=== PATIENT | male | born 1980 | race Caucasian/White ===

== ENCOUNTER 2017-07-13 06:02 | Emergency (ER) | payer SELFPAY ==
[~2017-07-13] VITALS: Wt 81.6 kg
[~2017-07-13 06:02] MED LIST: 'PARAFON FORTE500 M1 PO; BACTRIM DS 8001 TA1 PO; CIPRO500 MG PO; CLEOCIN HCL300 MG PO; HYDROCODONE BIT1 T11 PO; KEFLEX500 MG PO; MEDROL DOSEPAK4 MG PO; Motrin,Rufen800 MG PO; NAPROSYN500 MG PO; PERCOCET 325 MG1 TA2 PO; PERCOCET 325 MG1 TA7 PO; PREDNISONE50 MG PO; SKELAXIN800 M1 PO
== END 2017-07-13 06:24 | disposition left against medical advice (07) ==
LOC: ED 06:02
DX: T50.991A Poisoning by other drugs, medicaments and biological substances, accidental (unintentional), initial encounter (principal); Z79.899 Other long term (current) drug therapy; Z88.6 Allergy status to analgesic agent; Z88.8 Allergy status to other drugs, medicaments and biological substances; Y92.9 Unspecified place or not applicable

== ENCOUNTER 2018-09-22 20:02 | Inpatient (IN) | payer SELFPAY ==
[~2018-09-22] VITALS: Ht 177.8 cm; Wt 83.1 kg
--- NOTE | ~2018-09-22 | PROC NOTE ---
[place], [place] PROCEDURE NOTE [id number] #: [id number] ROOM: 420 DOCTOR: NORMA HANKINS MD BIRTHDATE: [birth year] DOS: 09/24/2018 PREOPERATIVE DIAGNOSIS: Left arm abscess. POSTOPERATIVE DIAGNOSIS: Left arm abscess. PROCEDURE: Incision and drainage of left arm abscess. SURGEON: Norma Hankins MD STREET SUPERVISOR: ZANDER. ANESTHESIA: MAC with local (1% plain lidocaine). INDICATIONS: This is a 38-year-old gentleman with a history of a left arm abscess who is here for the above-mentioned procedure. The procedure and its complications were explained to the patient in detail preoperatively. Complications that were discussed included but were not limited to bleeding, infection, hematoma/seroma/abscess formation, and damage to underlying vital structures. He agreed to proceed. DESCRIPTION OF PROCEDURE: After identifying the patient, the patient was brought to the operating suite and laid in the supine position. After a time-out procedure was called, IV sedation was administered by the anesthesia team and the parts were then painted and draped in the usual sterile fashion. There was an opening in the region of the abscess, which was opened in both directions after local anesthesia was infiltrated. The abscess cavity was entered and a specimen of pus was sent for microbiological examination. Thereafter, saline was used for irrigation and the entire abscess cavity was drained of its pus and was then packed with the help of half inch iodoform pack. A dressing was placed. The patient tolerated the procedure well and was brought back to the recovery room in stable fashion. There were no complications. Dr. Norma Hankins, the attending surgeon, was present throughout the operating case. Norma Hankins MD CM:PROCNOTE:PROCEDURE NOTE [id number] NORMA HANKINS MD
--- NOTE | ~2018-09-22 | EKG ---
[place], [place] ELECTROCARDIOGRAM REPORT NAME: KENDALL ROSE UNIT #: [id number] ROOM: 420 DOCTOR: KIRSTEN DRAFT REPORT BIRTHDATE: [birth year] [facility] Test Date: 2018-09-22 Test Time: 21:18:09 Pat Name: KENDALL ROSE Department: Room: 420 Gender: M Devops Engineer: [email or web address].WA : [id number] Requested By: CIERRA KIMBROUGH DNP Order Number: [id number] Reading MD: Anuel Fong Measurements Intervals [place] Rate: 101 P: 59 VA: 143 QRS: 82 QRSD: 91 T: 41 QT: 319 QTc: 414 Interpretive Statements Sinus tachycardia Electronically Signed On 09-23-2018 12:52:49 PDT by Anuel Fong CM:EKGRPT:ELECTROCARDIOGRAM REPORT [id number] CIERRA CURTIS DRAFT REPORT CIERRA KIMBROUGH DNP
[2018-09-22 20:04] VITALS: BP 140/71
[2018-09-22 20:39] LABS: BASO # 0.1 10*3/uL (0.0-0.1); BASO % 0.4 % (0.0-1.0); EOS # 0.1 10*3/uL (0.0-0.4); EOS % 0.5 % (1.0-4.0); HEMOGLOBIN 14.5 g/dl (14.0-18.0); LYMPH # 1.8 10*3/uL (1.3-4.4); LYMPH % 10.8 % (27.0-41.0); MEAN CELL VOLUME 91.3 fl (80.0-94.0); MEAN CORPUSCULAR HGB 30.8 pg (27.0-31.0); MEAN CORPUSCULAR HGB CONC 33.7 g/dl (33.0-37.0); MONO # 1.2 10*3/uL (0.1-1.0); MONO % 7.2 % (3.0-9.0); NEUT # 13.6 10*3/uL (2.3-7.9); NEUT % 80.6 % (47.0-73.0); PLATELET COUNT AUTOMATED 162 10*3/uL (130-400); RED BLOOD COUNT 4.71 10*6/uL (4.50-5.90); RED CELL DISTRI WIDTH 12.7 % (0-14.5); WHITE BLOOD COUNT 16.9 10*3/uL (4.8-10.8)
[2018-09-22 20:50] LABS: ACT PARTIAL THROMBO TIME 33.9 SECONDS (20.0-32.1); INTERNATIONAL NORM RATIO 1.1 (2.0-3.5)
[2018-09-22 20:54] LABS: ALBUMIN 3.3 gm/dl (3.1-4.5); ALKALINE PHOSPHATASE 85 U/L (45-117); BUN 10 mg/dl (7-24); CHLORIDE 102 mmol/L (98-107); CREATININE 1.01 mg/dL (0.70-1.30); LIPASE 36 U/L (73-393); POTASSIUM 3.9 mmol/L (3.5-5.1); SGOT/AST 5 IU/L (3-35); SGPT/ALT 17 U/L (12-78); SODIUM 136 mmol/L (136-145); TOTAL PROTEIN 7.3 gm/dL (6.4-8.2)
[2018-09-22 20:55] LABS: TROPONIN I < 0.015 ng/ml (<0.045)
--- NOTE | 2018-09-22 21:12 | NUR ---
FIRST ANTIBIOTIC STARTED... PATIENT HAS POOR VENOUS ACCESS DUE TO WHAT LOOKS LIKE POSSIBLE DRUG USAGE... SO ONLY STARTED ONE IV ON HIM... VANC WILL START AFTER AND TOWARDS ADMISSION...
[2018-09-22 22:30] VITALS: BP 112/66
--- NOTE | 2018-09-22 22:30 | NUR ---
PT REPORTS NO HOME MEDS
[2018-09-22 22:42] VITALS: BP 134/88
--- NOTE | 2018-09-22 23:34 | NUR ---
A 38, admitted to 4E, under the services of KEERTHI Carvalho DO with a diagnosis of ABSCESS, SEPSIS. Chief complaint is SPIDER BITE. Patient arrived via stretcher from ER. Monitor applied. Initial assessment completed. Vital signs taken and recorded. KEERTHI CARVALHO DO notified of admission to the unit. Orders received. See assessment for past medical history, medications and allergies. Patient and/or family oriented to unit. Clothing/patient valuable form completed. ERIC GARRISON
[2018-09-23] VITALS: BP 112/66
--- NOTE | 2018-09-23 00:45 | NUR ---
PT REFUSING WOUND PIC AT THIS TIME
[2018-09-23 06:13] LABS: BASO % 0.3 % (0.0-1.0); EOS # 0.1 10*3/uL (0.0-0.4); EOS % 0.9 % (1.0-4.0); HEMATOCRIT 39.5 % (42.0-52.0); HEMOGLOBIN 12.9 g/dl (14.0-18.0); LYMPH # 1.6 10*3/uL (1.3-4.4); LYMPH % 13.4 % (27.0-41.0); MEAN CORPUSCULAR HGB 30.7 pg (27.0-31.0); MEAN CORPUSCULAR HGB CONC 32.7 g/dl (33.0-37.0); MEAN PLATELET VOLUME 11.5 fl (9.6-12.3); MONO # 0.9 10*3/uL (0.1-1.0); NEUT # 9.1 10*3/uL (2.3-7.9); PLATELET COUNT AUTOMATED 143 10*3/uL (130-400); RED CELL DISTRI WIDTH 12.9 % (0-14.5); WHITE BLOOD COUNT 11.8 10*3/uL (4.8-10.8)
[2018-09-23 06:35] LABS: BUN 11 mg/dl (7-24); CHLORIDE 106 mmol/L (98-107); CHOLESTEROL 78 mg/dL (<200); HDL CHOLESTEROL 40 mg/dl (40-60); LDL CHOLESTEROL 28 mg/dL (9-159); PHOSPHOROUS 2.5 mg/dL (2.5-4.9); POTASSIUM 3.8 mmol/L (3.5-5.1); SODIUM 140 mmol/L (136-145); TRIGLYCERIDES 52 mg/dl (<150); VLDL CHOLESTEROL 10 mg/dL (6-40)
[2018-09-23 06:45] LABS: THYROID STIM HORMONE (HS) 0.315 uIU/ml (0.358-4.75)
[2018-09-23 08:00] VITALS: BP 110/50
--- NOTE | 2018-09-23 09:35 | NUR ---
PATIENT REQUESTING PAIN MEDICATION. MEDICATED WITH TYLENOL PER PRN ORDER. WILL CONTINUE TO MONITOR.
[2018-09-23 09:42] LABS: BILIRUBIN NEGATIVE (NEGATIVE); BLOOD NEGATIVE (NEGATIVE); CLARITY SL CLOUDY (CLEAR); COLOR YELLOW (YELLOW); GLUCOSE NEGATIVE (NEGATIVE); KETONE NEGATIVE (NEGATIVE); LEUKO ESTERASE NEGATIVE (NEGATIVE); NITRITE NEGATIVE (NEGATIVE); UROBILINOGEN 0.2 E.U./dl (0.2-1.0)
--- NOTE | 2018-09-23 09:44 | NUR ---
NOTIFIED OF NEW CONSULT ORDER.
[2018-09-23 09:50] LABS: URINE AMPHETAMINES < 1000 (1000ng/ml); URINE BARBITURATES < 200 (200ng/ml); URINE BENZODIAZEPINES < 200 (200ng/ml); URINE CANNABINOIDS (THC) < 50 (50ng/ml); URINE COCAINE < 300 (300ng/ml); URINE METHADONE < 300 (300ng/ml); URINE OPIATES < 300 (300ng/ml)
[2018-09-23 09:55] LABS: URINE PHENCYCLIDINE < 25 (25ng/ml)
[2018-09-23 09:58] LABS: BACTERIA TRACE
[2018-09-23 12:00] VITALS: BP 118/57
--- NOTE | 2018-09-23 12:00 | NUR ---
PATIENT CONTINUES TO C/O PAIN. NOTIFIED THAT TYLENOL WAS INEFFECTIVE.
--- NOTE | 2018-09-23 12:20 | NUR ---
PATIENT MEDICATED WITH NORCO PER NEW ORDER. WILL CONTINUE TO MONITOR.
[2018-09-23 16:00] VITALS: BP 115/60
--- NOTE | 2018-09-23 18:20 | NUR ---
PATIENT CALLED RN INTO ROOM STATING THAT EARLIER NORCO WAS INEFFECTIVE AND WOULD LIKE TO HAVE SOMETHING ELSE FOR PAIN. CALLED AND INFORMED OF THIS. NEW ORDER RECEIVED. PATIENT ALSO C/O NAUSEA. MEDICATED WITH ZOFRAN PER PRN ORDER. WILL CONTINUE TO MONITOR.
[2018-09-23 20:00] VITALS: BP 117/61
--- NOTE | 2018-09-23 21:05 | NUR ---
PT GIVEN NORCO FOR C/O PAIN TO LEFT ARM. WILL MONITOR FOR EFFECTIVENESS. CALL LIGHT IN REACH.
--- NOTE | 2018-09-23 22:05 | NUR ---
DAYA EFFECTIVE PER PT.
[2018-09-23 22:26] VITALS: BP 108/62; BP 114/50
[2018-09-24] VITALS (8 sets, daily range): BP systolic 113–132; BP diastolic 55–76
--- NOTE | 2018-09-24 02:41 | NUR ---
PT RESTING IN BED AT THIS TIME WITH NO OBVIOUS SIGNS/SYMPTOMS OF PAIN OR DISCOMFORT. RESPIRATIONS ARE EASY AND NONLABORED. BED IS LOCKED AND IN THE LOWEST POSITION, CALL LIGHT IS WITHIN REACH. WILL CONTINUE TO MONITOR PT.
--- NOTE | 2018-09-24 07:45 | NUR ---
I WAS GETTING REPORT FROM NIC WHEN LAB WALKED BY AND SAID THAT PATIENT HAD A VANC TROUGH DUE AT 1030 AND THAT SHE WOULD GET THE ROUTINE LABS THEN. MORNING ROUTINE LABS WERE NOT DRAWN. SHE SAID THEY WOULD GET THEM LATER.
--- NOTE | 2018-09-24 09:00 | NUR ---
Credit Administration Manager in to talk to patient. Patient states lives at home with alone. There are few steps in the home. Physician: none Pharmacy: [facility] Home health services: none Patient's level of ADLs: INDEPENDENT Patient has working utilities: all working DME: none Follow-up physician's appointment after d/c: will be made by hospitalist nurse director with doctor of patient's choice Does patient want to access PORTAL?: no Discharge plan discussed with patient, patient lives at home, is independent in adls and ambulation, patient states he will be going home when able and denies any home needs. discussed iwth patient not having any insurance and that Gaby from [employer] would talk with him and help him fill out paperwork to help with the hospital stay. also discussed with him being able to affort medications, patient stated he was fine paying for medications, case management will follow. SHAREE FLORES
[2018-09-24 10:54] LABS: BASO % 0.3 % (0.0-1.0); EOS # 0.1 10*3/uL (0.0-0.4); EOS % 1.2 % (1.0-4.0); HEMATOCRIT 36.5 % (42.0-52.0); HEMOGLOBIN 12.1 g/dl (14.0-18.0); LYMPH # 1.3 10*3/uL (1.3-4.4); LYMPH % 10.9 % (27.0-41.0); MEAN CELL VOLUME 92.4 fl (80.0-94.0); MEAN CORPUSCULAR HGB 30.6 pg (27.0-31.0); MEAN CORPUSCULAR HGB CONC 33.2 g/dl (33.0-37.0); MEAN PLATELET VOLUME 11.7 fl (9.6-12.3); MONO # 0.8 10*3/uL (0.1-1.0); MONO % 6.8 % (3.0-9.0); NEUT # 9.6 10*3/uL (2.3-7.9); NEUT % 80.3 % (47.0-73.0); PLATELET COUNT AUTOMATED 129 10*3/uL (130-400); RED BLOOD COUNT 3.95 10*6/uL (4.50-5.90); RED CELL DISTRI WIDTH 12.5 % (0-14.5)
[2018-09-24 10:56] LABS: BUN 7 mg/dl (7-24); CHLORIDE 105 mmol/L (98-107); CREATININE 0.84 mg/dL (0.70-1.30); POTASSIUM 3.7 mmol/L (3.5-5.1); SODIUM 136 mmol/L (136-145)
--- NOTE | 2018-09-24 11:05 | NUR ---
PER PATIENT HE SAID THAT HE DRAINED HIS ABCESS LAST NIGHT. I WAS TOLD IN REPORT THAT THEY WERE UNSURE IF HE WOULD BE GETTING INCISION AND DRAINAGE TODAY. CALLED DR MENDOZA TO VERIFY. HE SAID SEND PT TO OPERATING ROOM AND HE WILL LOOK AT IT THERE.
--- NOTE | 2018-09-24 14:00 | NUR ---
PATIENT MEDICATED WITH PO NORCO FOR PAIN IN HIS LEFT ARM RATED 6/10
--- NOTE | 2018-09-24 18:58 | NUR ---
CALLED DR MCCARTY REGARDING PATIENTS PAIN. RECEIVED NEW ORDERS.
--- NOTE | 2018-09-24 19:28 | NUR ---
0.25 mg OF IV DILAUDID GIVEN ORDERED FOR COMPLAINTS OF PAIN TO LEFT ARM. WILL MONITOR FOR EFFECTIVENESS OF MEDICATION.
--- NOTE | 2018-09-24 21:00 | NUR ---
DILAUDID EFFECTIVE PER PT
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
[2018-09-25] VITALS: BP 127/61
--- NOTE | 2018-09-25 07:10 | NUR ---
KENDALL ROSE [id number] Please refer to the physician's history and physical for past medical history, comorbid conditions, and allergies. Diagnosis: ABSCESS, SEPSIS Malik Score: 22,LOW OR NO RISK WOUND DESCRIPTIONS: Wound Number: 1 Post op dressing at time of assessment. Wound Number: 2 ( new skin impairment ) Location of the wound: right lower extremity medial aspect Thickness: Full Size: 4.5cm x 1.4cm x 0.1cm Tunneling: none Undermining: none Sinus Tract: none Presence of Exudate: Serosanguineous Amount: Light Color: Yellow, brown, red Odor: None Periwound Skin Appearance: Erythema Wound edges: approximated Pain (associated with wound): none at time of assessment How does patient state this happened? pt stated this happened prior to admission on a washer Surface the patient is resting on: Isoflex SKIN PREVENTION RECOMMENDATION: 1. Pressure redistribution support surface as appropriate 2. Elevate heels 3. Remove boots/TEDS every shift and reapply 4. Head of bed 30 degrees as tolerated 5. Assess nutrition and hydration 6. Manage moisture 7. Avoid the use of containment devices while in bed 8. Use absorptive products on surfaces limit layers of linens on bed 9. Turn and reposition every 1-2 hours in bed and every 1 hour in chair as tolerated 10. Weight shifts every 15 minutes while up in chair 11. Offloading with pillows or device to keep heels elevated off bed 12. Monitor skin at least every shift 13. Inspect under medical devices twice a day WOUND TREATMENT RECOMMENDATIONS: Full thickness guidelines: Cleanse right lower extremity medial aspect with nss and apply sureprep around the wound therahoney to wound bed and cover with optifoam gentle.
[2018-09-25 08:00] VITALS: BP 120/58
--- NOTE | 2018-09-25 08:29 | NUR ---
PATIENT GIVEN PRN TYLENOL FOR LEFT ARM PAIN.
--- NOTE | 2018-09-25 09:00 | NUR ---
case management visits with patient, patient will be going home when able, no voiced needs at this time
--- NOTE | 2018-09-25 09:06 | NUR ---
Spoke with Dr. Guerra regarding wound care recommendations and to have him follow up in wound care center per Dr. Hankins.
--- NOTE | 2018-09-25 10:30 | NUR ---
PRN PO TYLENOL NOT EFFECTIVE; MEDICATED WITH PRN PO NORCO FOR LEFT ARM PAIN.
--- NOTE | 2018-09-25 10:59 | NUR ---
MEDICATED WITH DILAUDID X1 IV ORDERED PRIOR TO DRESSING CHANGE.
[2018-09-25 12:00] VITALS: BP 124/69
[2018-09-25 16:00] VITALS: BP 134/82
--- NOTE | 2018-09-25 16:12 | NUR ---
PATIENT REPORTS HAVING INCREASED DRAINAGE FROM HIS SURGICAL WOUND TO LT ANTECUBITAL AREA. UPON ASSESSMENT, PACKING HAS BEEN REMOVED BY THE PATIENT, AND SMALL AMOUNT OF SEROSANGUINOUS DRAINAGE NOTED TO THE AREA. AT BEDSIDE, STATES WOUND SHOULD PROBABLY BE ALLOWED TO DRAIN OUT INSTEAD OF PACKED. PATIENT AND ADVISED THAT PACKING SHOULD REMAIN IN PLACE TO DRAW OUT THE DRAINAGE AND MOVE TOWARD THE OUTER DRESSING TO PROMOTE HEALING. REPACKED WOUND PER ORDER AND WRAPPED WITH BULKY KERLIX DRESSING.
--- NOTE | 2018-09-25 18:09 | NUR ---
ABIODUN BANDAGE APPLIED FROM HAND TO ABOVE ELBOW TO HOLD DRESSING IN PLACE AND REDUCE HAND SWELLING. PATIENT REPORTS SOME RELIEF OF PAIN WITH THIS INTERVENTION.
--- NOTE | 2018-09-25 18:45 | NUR ---
MEDICATED WITH PRN PO NORCO FOR LEFT ARM INCISION SITE PAIN.
--- NOTE | 2018-09-25 19:28 | NUR ---
PT RESTING IN BED AT THIS TIME. HE DENIES ANY PAIN OR DISCOMFORT. DRESSING TO LEFT ARM CLEAN/DRY/INTACT. HE VOICES NO NEEDS AT THIS TIME. RESPIRATIONS ARE EASY AND NONLABORED. HE IS NSR ON THE MONITOR. SAEFTY MEASURES IN PLACE, CALL LIGHT WITHIN REACH. WILL CONTINUE TO MONITOR PT.
[2018-09-25 20:00] VITALS: BP 128/72
[2018-09-26] VITALS: BP 134/78
--- NOTE | 2018-09-26 05:26 | NUR ---
PT REQUESTED AND RECIEVED PRN ORDERS FOR NORCO AND ZOFRAN FOR COMPLAINTS OF PAIN TO LEFT ARM AND NAUSEA. WILL MONITOR FOR EFFECTIVENESS OF MEDICATIONS.
--- NOTE | 2018-09-26 06:55 | NUR ---
Spoke with patient regarding follow up in the wound care center he stated the best contact number to reach him is [phone]. He stated that it doesn't matter what day any day will work.
[2018-09-26 08:00] VITALS: BP 132/76
--- NOTE | 2018-09-26 08:00 | NUR ---
Discharge instructions reviewed with patient/family. Patient receptive and verbalizes understanding. Follow-up care arranged. Written instructions given to patient/family. JOSÉ MIGUEL BOGGS
--- NOTE | 2018-09-26 09:00 | NUR ---
case management visits with patient, patient will be going home when able and denies any home needs
--- NOTE | 2018-09-26 09:58 | NUR ---
Follow up in the wound care center on 09/28/18 @ 9:30am with Shobha LIM.
[2018-09-26] MEDS ORDERED: LEVAQUIN750 M1 PO (11:29)
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
--- NOTE | 2018-09-26 12:23 | NUR ---
Discharge instructions reviewed with patient/family. Patient receptive and verbalizes understanding. Follow-up care arranged. Written instructions given to patient/family. JOSÉ MIGUEL BOGGS
== END 2018-09-26 12:23 | disposition home or self-care (01) | DRG 854 ==
LOC: ED 20:02 → 4E 21:25 → EDHOLD 21:25 → 4E 22:09
PROVIDERS: Internal Medicine; Nurse Practitioner Family; Student in an Organized Health Care Education/Training Program; ADMIT Internal Medicine
PROC: 0J9H0ZZ Drainage of Left Lower Arm Subcutaneous Tissue and Fascia, Open Approach (ICD-10-PCS; principal; 2018-09-24)
DX: A41.9 Sepsis, unspecified organism (principal); L02.414 Cutaneous abscess of left upper limb; L03.114 Cellulitis of left upper limb; B95.61 Methicillin susceptible Staphylococcus aureus infection as the cause of diseases classified elsewhere; F17.210 Nicotine dependence, cigarettes, uncomplicated; R73.9 Hyperglycemia, unspecified; Z71.6 Tobacco abuse counseling; Z88.8 Allergy status to other drugs, medicaments and biological substances; Z88.6 Allergy status to analgesic agent

== ENCOUNTER 2018-11-03 09:30 | Emergency (ER) | payer SELFPAY ==
[~2018-11-03] VITALS: Ht 177.8 cm; Wt 140.6 kg
[~2018-11-03 09:30] MED LIST changes: +LEVAQUIN750 M1 PO
[2018-11-03] MEDS ORDERED: AUGMENTIN 875875 MG PO (09:46)
[2018-11-03] MEDS ORDERED: IBUPROFEN600 MG PO (09:46)
== END 2018-11-03 10:20 | disposition home or self-care (01) ==
LOC: ED 09:30
DX: S71.152A Open bite, left thigh, initial encounter (principal); S01.152A Open bite of left eyelid and periocular area, initial encounter; F17.200 Nicotine dependence, unspecified, uncomplicated; Z88.6 Allergy status to analgesic agent; Z88.8 Allergy status to other drugs, medicaments and biological substances; W54.0XXA Bitten by dog, initial encounter; Y93.89 Activity, other specified; Y92.89 Other specified places as the place of occurrence of the external cause; Y99.8 Other external cause status